=== PATIENT | male | born 1980 | race Caucasian/White ===

== ENCOUNTER 2021-05-15 14:47 | Emergency (ER) | payer BC, SELFPAY ==
[2021-05-15 14:47] VITALS: BP 170/97; PULSE 84; RESP 14; TEMP 36.3; O2SAT 98; BMI 32.0
--- NOTE | 2021-05-15 16:17 | EDS_ITS ---
HPI HPI - GI History of Present Illness Chief Complaint: Abd Pain Informant: patient Abdominal Pain/Flank Pain Onset: Today Context: Sudden Onset Timing: Continuous Quality: Sharp Location: - (Periumbilical) Worsened by: Nothing Relieved by: Nothing Nausea/Vomiting/Emesis GI Symptom: Negative for Nausea and Vomiting Diarrhea/Melena/Hematochezia GI Symptom: Negative for Diarrhea, Melena and Hematochezia Associated Symptoms Associated Symptoms: Negative for Dysuria, Frequency and Hematuria Narrative Narrative: Patient presents with abdominal pain that began today. Patient states he has a umbilical hernia that he knows about. Patient states that he was working on his truck today and his pain started while he was climbing in and out of his truck. Patient states the pain is over the umbilical area. Patient describes the pain as sharp. Patient denies any nausea or vomiting. Patient denies any fevers or chills. Patient denies any diarrhea, melena, or hematochezia. Patient states nothing makes it better nothing makes it worse. PFSH PFS Medical History Abdominal pain Encounter for examination required by Department of Transportation (DOT) GERD (gastroesophageal reflux disease) Home Medications famotidine 20 mg tablet 20 mg PO DAILY 03/15/20 [History Last Taken Unknown] Allergy/AdvReac Type Severity Reaction Status Date / Time No Known Allergies Allergy Verified 05/15/21 14:49 Family History Grandfather Heart disease Grandmother Heart disease Father Heart disease Surgical History No history of previous surgery no surgical history Social History Smoking Status: Never smoker alcohol intake: current alcohol intake frequency: a few times a month substance use type: does not use ROS ROS ED Constitutional Constitutional ED: Denies chills or fever(s) Eyes Eyes: Denies blurry vision or change in vision ENT ENT ED: Denies rhinorrhea or sore throat Cardiovascular Cardiovascular: Denies chest pain or palpitations Respiratory/Chest Respiratory/Chest: Denies cough or dyspnea Gastrointestinal Gastrointestinal: Reports abdominal pain; Denies nausea or vomiting Genitourinary Genitourinary ED: Denies dysuria or hematuria Musculoskeletal Musculoskeletal: Denies back pain or neck pain Integumentary Denies abscess or rash Neurologic Neurologic: Denies headache(s) or weakness Allergic/Immunologic Allergic/Immunologic ED: Denies mouth swelling or urticaria EXAM Physical Exam Const Vital Signs: 05/15/21 14:47 05/15/21 20:07 Temperature 97.4 F L Temperature Source Temporal Pulse Rate 84 90 Respiratory Rate 14 12 Blood Pressure 170/97 H Blood Pressure Mean 121 Pulse Ox 98 Oxygen Delivery Method Room Air Positive well nourished, well developed and obese General Appearance ED: well developed Nutritional Appearance: obese HEENT Reports moist mucous membranes Neck supple and no JVD Resp normal respiratory effort and clear to auscultation bilaterally Cardio regular rate, regular rhythm and no murmurs GI normal to inspection, nondistended, normoactive bowel sounds and non-distended Auscultation: normoactive bowel sounds Palpation: soft, tender periumbilical and hernia umbilical (There is a fascial defect palpated in the umbilical area. There is no herniation noted.); Negative for guarding or rebound tenderness present Extremity normal to inspection General Extremety ED: Negative for edema or tenderness General Extremity: Negative for edema Neuro oriented x3, CN's II-XII intact bilaterally and no sensory deficits noted Sensorium / Orientation: alert Motor Exam: strength 5/5 throughout Psych mental status grossly normal Skin no rashes or lesions noted MDM MDM MDM Narrative Medical decision making narrative: Patient was given IV fluids, morphine, and Zofran. CBC shows a mild leukocytosis of 12.9. Comprehensive metabolic profile was within normal limits. Lipase was normal. Urinalysis does not show any evidence of urinary tract infection. CT scan of the abdomen and pelvis was obtained. There is no acute intra-abdominal abnormality noted. There is a small fat-containing umbilical hernia. There is no strangulation or incarceration noted. This was interpreted by the radiologist and reviewed by myself. Patient was feeling better on reevaluation. Patient was advised of his findings. Patient was instructed to follow-up with his primary care physician in 3-5 days for further evaluation. Patient understood and was agreeable with the plan. All questions were answered. Lab Data Attestation: I reviewed the patient's lab results. Labs: Laboratory Results - last 24 hr 05/15/21 05/15/21 05/15/21 16:25 16:25 18:20 WBC 12.9 H RBC 5.33 Hgb 15.8 Hct 44.8 MCV 84.1 MCH 29.6 MCHC 35.3 RDW Std Deviation 40.1 RDW Coeff of Shahana 13.2 Plt Count 230 MPV 10.8 Immature Gran % (Auto) 0.400 Neut % (Auto) 83.8 H Lymph % (Auto) 9.1 L Rabun % (Auto) 6.1 Eos % (Auto) 0.2 Baso % (Auto) 0.4 Absolute Neuts (auto) 10.8 H Absolute Lymphs (auto) 1.17 Nucleated RBC % 0 Sodium 139 Potassium 3.8 Chloride 103 Carbon Dioxide 29.0 Anion Gap 7 BUN 14 Creatinine 0.97 Estim Creat Clear Calc 89.52 Est GFR (MDRD) Af Amer 108 Est GFR (MDRD) Non-Af 90 BUN/Creatinine Ratio 14.4 Glucose 96 Calcium 9.7 Total Bilirubin 0.90 AST 23 ALT 53 Alkaline Phosphatase 84 Total Protein 7.9 Albumin 4.3 Globulin 3.6 Albumin/Globulin Ratio 1.2 Lipase 42 L Urine Color Yellow Urine Clarity Clear Urine pH 5.0 Ur Specific [place] 1.015 Urine Protein Negative Urine Glucose (UA) Normal Urine Ketones Negative Urine Occult Blood Negative Urine Nitrite Negative Urine Bilirubin Negative Urine Urobilinogen Normal Ur Leukocyte Esterase Negative Urine RBC 0 SEEN Urine WBC 0 SEEN Ur Squamous Epith Cells 0 SEEN Urine Bacteria 0 SEEN Urine Mucus 0 SEEN Radiography Diagnostic Testing: Clinical Impression(s) from Imaging Studies Abdomen/Pelvis CT 05/15/21 18:38 IMPRESSION: No acute abnormalities in the abdomen or pelvis. Small fat-containing periumbilical hernia. Hiatal hernia. Electronically Signed: Hasmukh Jara MD at 20:01 EST Tel , Service support , Discharge Plan Triage Chief Complaint: Abd Pain ED Provider: Ibrahima Leavitt Dx/Rx/DC Orders Clinical Impression: Umbilical hernia Instructions: ED Hernia (Adult) Prescriptions: No Action famotidine [Pepcid] 20 mg tablet 20 mg PO DAILY RF: 0 Primary Care Provider: Care Physician,No Primary Referrals: Barry Andrew MD [NON-STAFF] - 3-5 Days Care Physician,No Primary [Primary Care Provider] - Disposition Disposition: Home, Self Care
[2021-05-15] MEDS: Ondansetron 4 MG/2 ML Vial IV (16:25)
[2021-05-15] MEDS: Morphine 4 MG/ML Syringe IV (16:25)
[2021-05-15] MEDS: 0.9% Normal Saline 1,000 ML 1000 ML IV (16:26)
[2021-05-15 16:31] LABS: Absolute Lymphocyte Count 1.17 X10^3/uL (0.83-4.51); Absolute Neutrophil Count 10.8 X10^3/uL (2.0-7.7); Basophil# 0.05 X10^3/uL; Basophil% 0.4 % (0-1); Eosinophil# 0.02 X10^3/uL; Eosinophils% 0.2 % (0-5); Hematocrit 44.8 % (40-54); Hemoglobin 15.8 g/dL (13.0-16.5); Lymphocyte # 1.17 X10^3/ul (0.83-4.51); Lymphocyte % 9.1 % (19-41); Mean Corp Hgb Conc 35.3 g/dL (32-36); Mean Corpuscular Hgb 29.6 pg (27.0-32.0); Mean Corpuscular Volume 84.1 fL (80-94); Mean Platelet Vol. 10.8 fl (6.2-12.0); Monocyte# 0.79 X10^3/uL; Monocyte% 6.1 % (0-10); NRBC Flagged by Analyzer 0 % (0-5); Neutrophil # 10.82 X10^3/uL (2.7-7.7); Neutrophil % 83.8 % (47-70); Platelet Count 230 K/mm3 (150-450); RBC Distribution Width CV 13.2 % (11.6-14.6); RBC Distribution Width SD 40.1 fl (35.1-43.9); Red Blood Count 5.33 M/mm3 (4.6-6.2); White Blood Count 12.9 K/mm3 (4.4-11.0)
[2021-05-15 16:52] LABS: ALB/GLOB Ratio 1.2 RATIO (0.9-2.4); AST(SGOT) 23 U/L (15-37); Alanine Aminotransfer ALT/SGPT 53 U/L (16-61); Albumin, Serum 4.3 g/dL (3.2-5.0); Alkaline Phosphatase 84 U/L (45-117); Anion Gap 7 (5-15); BUN 14 mg/dL (7-18); BUN/Creat Ratio 14.4 RATIO (10-20); Calcium,Total 9.7 mg/dL (8.5-10.1); Chloride 103 mmol/L (98-107); Creatinine, Serum 0.97 mg/dL (0.70-1.30); EST Glomerular Filtration Rate 90 mL/min (>60); Est Glom Filt Rate - Afr Amer 108 mL/min (>60); Estimated Creatinine Clearance 89.52 ml/min; Globulin 3.6 g/dL (2.2-4.2); Glucose 96 mg/dL (74-106); Lipase 42 U/L (73-393); Potassium 3.8 mmol/L (3.5-5.1); Protein, Total 7.9 g/dL (6.4-8.2); Sodium Level 139 mmol/L (136-145)
[2021-05-15 18:25] LABS: Bacteria 0 SEEN /hpf (None Seen); Mucous, Urine 0 SEEN /hpf (<or=2+); Red Blood Cells-Urine 0 SEEN /hpf (0-5); Squamous Epithelial Cells - UA 0 SEEN /hpf (0-5); White Blood Cells 0 SEEN /hpf (0-5)
[2021-05-15 18:26] LABS: Color, Urine Yellow (Yellow); Glucose, Dipstick Normal (Normal); Ketone-Dipstick Negative (Negative); Leukocyte Esterase-Dipstick Negative /ul (Negative); Nitrite-Dipstick Negative (Negative); Occult Blood-Urine Negative /ul (Negative); Protein-Dipstick Negative (Negative); Specific Gravity, Urine 1.015 (1.002-1.030); Urine Bilirubin Dipstick Negative (Negative); Urine Clarity Clear (Clear); Urine Urobilinogen Normal (Normal)
--- NOTE | 2021-05-15 18:38 | CT_ITS ---
INDICATION: Abdominal pain EXAMINATION: CT Abdomen And Pelvis W/ Contrast Injection TECHNIQUE: Helically acquired images were obtained of the abdomen and pelvis after IV contrast. A radiation dose optimization technique was used for this scan. IV Contrast dosage and agent: IV 100mL Isovue-300 Oral contrast: None. COMPARISON: None. FINDINGS: Visualized lung bases: Unremarkable Liver: Scattered hepatic cysts. Gallbladder: Unremarkable Spleen: Unremarkable Pancreas: Unremarkable Adrenal Glands: Unremarkable Kidneys: Unremarkable Vasculature: Unremarkable GI Tract: Hiatal hernia. Lymphadenopathy: None Peritoneum: No ascites. Bladder: Unremarkable Reproductive organs: Unremarkable Bones/Soft tissues: Small fat-containing periumbilical hernia. CT/Abdomen/Pelvis W IV Cont ONLY IMPRESSION: No acute abnormalities in the abdomen or pelvis. Small fat-containing periumbilical hernia. Hiatal hernia. Electronically Signed: Hasmukh Jara MD at 20:01 EST Tel , Service support ,
[2021-05-15 20:07] VITALS: PULSE 90; RESP 12
[2021-05-15 20:23] VITALS: PULSE 80; RESP 12
== END 2021-05-15 20:23 | disposition home or self-care (01) ==
PROVIDERS: Emergency Provider Emergency Medicine; Visit Provider Emergency Medicine
DX: K42.9 Umbilical hernia without obstruction or gangrene (principal); K21.9 Gastro-esophageal reflux disease without esophagitis; E66.9 Obesity, unspecified; Z68.32 Body mass index [BMI] 32.0-32.9, adult
CPT/HCPCS: 74177; 80053; 81001; 83690; 85025; 96361; 96374; 96375; 99283; J7030; Q9967; J2405

== ENCOUNTER 2022-03-21 05:42 | Day surgery (SDC) | payer BC, SELFPAY ==
[2022-03-21] VITALS (8 sets, daily range): BP systolic 116–132; BP diastolic 76–82; PULSE 69–90; RESP 16; TEMP 36.4–36.8; O2SAT 92–97; BMI 33.4
--- NOTE | 2022-03-21 | HERN_PTH ---
PATIENT: AYANA VEGA Jr. LOC: [facility] [place] U#:[id number] AGE/SX: 41/M ROOM: RE03/21/[address]: Dr. Bebe Thomson MD : 1980 BED: DIS: 03/21/2022 SPEC #: [id number] RECD: 03/21/22 13:09 STATUS: CARLOS REMilvia #: [id number] PETER: 03/21/22 00:[address]: Bebe Thomson DEPT: SURGICAL PATHOLOGY RECD BY: Urbano Cardenas ENTERED: 03/21/22 13:09 SP TYPE: Hernia OTHR DR: Mathew Marie Tissues: HERNIA Procedures: Surgery Specimen Level II HEADER OPERATION: Umbilical hernia repair with mesh PRE-OP DIAGNOSIS: Umbilical hernia TISSUE SUBMITTED: Umbilical hernia sac MICROSCOPIC DIAGNOSIS Umbilical hernia sac: A piece of fibroadipose and fibroconnective tissue, consistent with hernia sac with reactive changes. SJ:dawson 03/22/2022 MICROSCOPIC DESCRIPTION Slides are reviewed. GROSS DESCRIPTION Received in fixative is one container labeled with the patient's name and designated umbilical hernia sac. The specimen consists of an irregular piece of congested soft tissue measuring 6.5 x 6 x 1.5 cm. No mass lesion is identified. Water Quality Manager sections are submitted in one cassette. / SJ:rg 03/21/2022 TC:5 CPT: 18627
[2022-03-21] MEDS: Lactated Ringers 1,000 ML 15 ML IV (06:41)
--- NOTE | 2022-03-21 07:19 | HP.PCM_ITS ---
HPI - General General Date of Admission: 03/21/22 HPI Narrative AYANA VEGA, is a 41 M who presents patient still having pain at his umbilicus. Patient is tolerating diet and having bowel function. from 07/28/21 office visit: HPI HPI: AYANA VEGA, is a 41 M who presents to the office today for umbilical hernia.? Patient states he has had this for about 3 years.? Patient is never had previous surgery on his abdomen.? Patient states does have increased pain at the umbilicus when he is lifting.? Patient states in April the pain was severe and he did go to the doctor and had a CT abdomen pelvis done which did show the umbilical hernia along with a hiatal hernia.? Patient currently denies any pain.? Tolerating diet and having bowel function. [facility] Medical History (Updated 03/14/22 @ 08:47 by Elisa Infante) Abdominal pain Encounter for examination required by Department of Transportation (DOT) GERD (gastroesophageal reflux disease) Non-smoker Wears glasses Home Medications omeprazole 20 mg capsule,delayed release 20 mg PO LUNCH 07/28/21 [History Last Taken 03/20/22] Allergy/AdvReac Type Severity Reaction Status Date / Time No Known Allergies Allergy Verified 03/14/22 08:42 Family History Grandfather Heart disease Grandmother Heart disease Father Heart disease Surgical History No history of previous surgery Social History Smoking Status: Never smoker alcohol intake: current alcohol intake frequency: a few times a month substance use type: does not use Vital Signs Vital Signs Vital Signs: 03/21/22 06:33 03/21/22 06:33 Temperature 98.2 F Temperature Source Temporal Pulse Rate 79 Respiratory Rate 16 Respiratory Pattern Normal Blood Pressure 132/80 H Blood Pressure Mean 97 Blood Pressure Source Monitor Blood Pressure Position Semi-Fowlers Blood Pressure Location Right Arm Pulse Ox 97 Oxygen Delivery Method Room Air Weight Weight: 220 lb 0.341 oz Body Mass Index (BMI) 33.4 Physical Exam Const alert, oriented x3 and no apparent distress HEENT normocephalic and head/scalp atraumatic Resp normal respiratory effort Cardio regular rate GI soft to palpation; Negative for non-distended Palpation: tender other (When reducing umbilical hernia) and hernia umbilical; Negative for guarding Extremity no clubbing, cyanosis or edema Neuro CN's II-XII intact bilaterally Psych mental status grossly normal Assessment & Plan Assessment/Plan (1) Umbilical hernia without obstruction and without gangrene: PLAN: Plan Plan to do an umbilical herniorrhaphy with mesh. Reviewed the procedure with the patient including the risks, including but not limited to infection, bleeding, injury to the small bowel, and recurrence. All questions were answered. Patient is had no further questions this time. Bebe Thomson M.D. Pager: [phone] [facility] [address] [place] [address], [address] [place] [address] Office: [phone]
[2022-03-21] MEDS: Cefazolin 2 GM in 0.9% Normal Saline 100 ML IV (07:35)
[2022-03-21] MEDS: Bupivacaine 0.25% 30 ML Vial (07:48)
--- NOTE | 2022-03-21 08:59 | OP.PCM_ITS ---
Report of Operation Date of Procedure: 03/21/22 Pre-Operative Diagnosis: Umbilical hernia Post-Operative Diagnosis: Same Surgery/Procedure Performed:: Open umbilical hernia repair with mesh Surgeon: Bebe Thomson alpine patroller: None alpine patroller: Porsha Lester Type of Anesthesia: General/Supplemental Anesthesiologist: Ibrahima Vázquez Special Medications: Ancef 2 g IV x1 Specimen's removed: Hernia sac Estimated Blood Loss (mL): 10 CC Description of Procedure: Patient was brought into the room placed supine on the operating table. Correct patient, procedure, site, positioning, special, was verified prior to procedure. General anesthesia was induced. The abdomen was prepped draped in usual sterile fashion. A curvilinear incision was made below the umbilicus with a 15 blade scalpel. This was deepened with electrocautery. A hemostat was used to go around the stalk of the umbilicus and Metzenbaum scissors was used to carefully divide the hernia sac from the skin of the umbilicus. The fascia around the hernia defect was cleared and the hernia defect measured 1.5 cm x 1.[address] hernia patch was used. 1 Prolene suture used to secure the mesh tails laterally. 2 talvel-[id number] sutures of 1 Prolene were used to close the fascia. The wound was irrigated with saline. Hemostasis was assured. The skin of the umbilicus was secured to the fascia using 3-0 Vicryl sutures interrupted X1. The incision was closed with 3-0 Vicryl subdermal interrupted sutures and the skin was closed with interrupted 4-0 Monocryl sutures. Steri-Strips and Tegaderm and OpSite were placed over the incision once sterile cotton balls were placed in the umbilicus. Patient was extubated. Patient tolerated procedure well and was taken to the postanesthesia care unit in stable condition. Grafts/Implants Used: Medium 6.[address] hernia patch LOT [id number] ref [id number] Complications none
--- NOTE | 2022-03-21 09:05 | DCINST_ITS ---
Discharge Instructions Diet Discharge Diet: Light diet - advance as tolerated Activity May shower in (days): 5 (Keep umbilical dressing clean dry and intact for 5 days. Okay to tape off with a Ziploc bag to shower. Or lower shower and upper sponge bath.) Lifting Restrictions: no lifting >20 lbs x 2 wks, no strenuous exercise for 4 wks Additional Activity Instructions:: - Dressing / Incision Call your doctor if your incision/area has: Continuous Slow Oozing, Sudden Increased Bleeding, Increased Pain/ Swelling, Increased Redness, Foul Smelling Discharge and Swelling at the incision site Call your doctor if you observe: Fever of 101 or Higher Remove Dressing in: 5 days (After 5 days okay to remove surgical dressing. Place cotton ball or rolled up gauze in bellybutton and retape daily for 2 more days.) Cleanse incision/area with: Do not get Incision Wet (for 5 days) Additional Dressing/Incision Instructions:: Steri-Strips will fall off in 7 to 10 days, if they do not fall off okay to remove after 10 days. Follow Up Care Please Follow Up With: Bebe Thomson MD When: Call the office for a follow-up appointment 2 weeks; after 5 PM and on the weekends call [phone] with any concerns. Test Results: Test results from this visit will be discussed in further detail at your follow- up appointment, if applicable. Discharge Plan Admission Attending Provider: Bebe Thomson Primary Care Provider: Mathew Marie Discharge Orders/Prescriptions Prescriptions: New oxycodone-acetaminophen 5-325 mg tablet 1 - 2 tab PO Q6H PRN (Reason: pain) 3 Days Qty: 16 0RF Continued omeprazole 20 mg capsule,delayed release(DR/EC) 20 mg PO LUNCH Referrals / Follow Up: Mathew Marie [Primary Care Provider] - Disposition Disposition (needs filled in before D/C Order can be placed): Home, Self Care
== END 2022-03-21 12:30 | disposition home or self-care (01) ==
LOC: SDC 05:42 → AC 05:44
PROVIDERS: PCP Family Medicine; Referring Provider Surgery; Visit Provider Surgery
PROC: (CPT 49585; principal; 2022-03-21 07:15)
DX: K42.9 Umbilical hernia without obstruction or gangrene (principal); K21.9 Gastro-esophageal reflux disease without esophagitis; Z79.899 Other long term (current) drug therapy
CPT/HCPCS: 49585; 00830; 88302; C1781; J7120; J2405